=== PATIENT | female | born 1960 | race Caucasian/White ===

== ENCOUNTER 2020-04-19 17:50 | Inpatient (IN) | payer OTHER ==
[~2020-04-19] VITALS: Ht 149.9 cm; Wt 51.0 kg
--- NOTE | ~2020-04-19 | HEMODYNAMI ---
PATIENT:GUZMAN MARTINEZ MEDICAL RECORD: [id number] : 60 [facility] D.[id number] ADMISSION DATE: 04/19/20 Generatedon:04/21/202015:23 Patient name: GUZMAN MARTINEZ Patient #: [id number] SSN: [id number] : 1960 Date of study: 04/21/2020 Page: Of Hemodynamic Procedure Report Patient Data Patient Demographics Procedure consent was obtained First Name: GUZMAN Gender: Female Last Name: JUAN : 1960 Middle Initial: A Age: 60 year(s) Patient #: [id number] Race: SSN: [id number] Additional ID: [id number] Contact details Address: [address] [place] [address] State: [place] City: [facility] Zip code: [address] Past Medical History Allergies Allergen Reaction Date Comments Reported Other allergy 04/21/2020 n Admission Admission Data Admission Date: 04/19/2020 Admission Time: 20:03 Arrival Date: 04/19/2020 Arrival Time: 0:00 Admit Source: Other Insurance Payor: None Room #: D.2121 [facility] #: [id number] Height (in.): 59 BSA: 1.44 (m2) Height (cm.): 149.86 BMI: 22.72 (kg/m2) Weight (lbs.): 112.48 Weight (kg.): 51.02 Lab Results Lab Result Date: 04/21/2020 Lab Result Time: 0:00 Biochemistry Name Units Result Min Max BUN mg/dl 17 --(---*)-- 7 18 Creatinine mg/dl 0.7 --(*---)-- 0.6 1.3 eGFR ml/min 90 --(*---)-- 90 120 NONAFRICAN Troponin l ng/ml 92.399 --(----)-* 0 0.06 CBC Name Units Result Min Max Hematocrit % 28.8 *-(----)-- 42 54 Hemoglobin g/dl 8.9 *-(----)-- 13.5 17.5 Procedure Procedure Types Cath Procedure Diagnostic Procedure Sedation Charges Moderate Sedation up to 30 minutes PCI Procedure Coronary Stent Coronary Stent Initial Hemochron ACT Test Procedure Description Procedure Date Procedure Date: 04/21/2020 Procedure Start Time: 14:45 Procedure End Time: 15:22 Procedure Staff Name Function Eddie Valadez MD Performing Physician Alpa Roman RT Monitor Kathryn Sanchez RT Scrub Gregory Bearden RN Nurse Procedure Data Cath Procedure Fluoroscopy Diagnostic fluoroscopy Total fluoroscopy Time: 3.1 time: 3.1 min min Diagnostic fluoroscopy Total fluoroscopy dose: 167 dose: 167 mGy mGy Contrast Material Contrast Material Type Amount (ml) Isovue 370 61 Entry Location Entry Primary Successful Side Size Upsize Upsize Entry Closure Succes sful Closure Location (Fr) 1 (Fr) 2 (Fr) Remarks Device Remarks Femoral Right 6 Fr Exoseal artery Short Estimated blood loss: 10 ml Procedure Complications No complications Procedure Medications Medication Administration Route Dosage Oxygen etCO2 Nasal cannula 2 l/min Lidocaine 2% added to field 20 Heparin Flush Bag added to field 2 bags (1000units/500ml NS) 0.9% NaCl I.V. 100 ml/hr Versed I.V. 1 mg Fentanyl I.V. 50 mcg Versed I.V. 1 mg Fentanyl I.V. 50 mcg Versed I.V. 1 mg Fentanyl I.V. 50 mcg Heparin Bolus I.V. 5000 units Nitroglycerin IC/IA I.C. 100 mcg Nitroglycerin IC/IA I.C. 100 mcg Hemodynamics Rest BSA: 1.44 (m2) HGB: 8.9 (g/dl) O2 Consumption: Estimated: 140.25 (ml/min) O2 Con sumption indexed: Estimated:97.4 (ml/min/m) Heart Rate: 77 (bpm) Snapshots Pre Cath Intra NCS Post Cath Vital Signs Time Heart Resp SPO2 etCO2 NIBP (mmHg) Rhythm Pain Sedation Rate (ipm) (%) (mmHg) Status Level (bpm) 14:22:26 80 23 93 0 157/97(122) NSR 0 (11) 10(A) , No pain 14:26:38 88 21 99 26.9 168/112(147) NSR 0 (11) 10(A) , No pain 14:30:54 79 23 100 28.4 153/101(132) NSR 0 (11) 10(A) , No pain 14:35:04 79 24 100 23.9 154/99(130) NSR 0 (11) 10(A) , No pain 14:39:14 78 18 100 33.6 146/93(125) NSR 0 (11) 10(A) , No pain 14:43:19 82 14 100 32.8 151/100(126) NSR 0 (11) 10(A) , No pain 14:47:27 78 14 100 28.3 146/93(128) NSR 0 (11) 10(A) , No pain 14:51:33 86 16 100 37.3 142/94(124) NSR 0 (11) 9(A) , No pain 14:55:39 83 13 100 38.8 147/95(124) NSR 0 (11) 9(A) , No pain 14:59:51 81 14 100 32.1 135/80(116) NSR 0 (11) 9(A) , No pain 15:03:55 81 11 100 41.1 145/93(127) NSR 0 (11) 9(A) , No pain 15:08:05 81 10 100 39.6 127/86(108) NSR 0 (11) 9(A) , No pain 15:12:06 82 12 100 38.8 135/90(108) NSR 0 (11) 9(A) , No pain 15:17:07 76 12 100 36.5 163/108(138) NSR 0 (11) 10(A) , No pain Medications Time Medication Route Dose Verified Delivered Reason Notes Effectiveness by by 14:29:59 Oxygen etCO2 2 Eddie Buffie used for Nasal l/min Rory Bearden RN procedure cannula 14:30:06 Lidocaine 2% added 20ml Eddie Eddie for local to vial Rory Valadez MD anesthetic field 14:30:12 Heparin Flush added 2 Eddie Eddie used for Bag to bags Rory Valadez MD procedure (1000units/500ml field NS) 14:30:23 0.9% NaCl I.V. 100 Eddie Buffie Per physician ml/hr Rory Bearden RN 14:42:01 Versed I.V. 1 mg Eddie Buffie for sedation Rory Bearden RN 14:42:08 Fentanyl I.V. 50 Eddie Buffie for sedation mcg Rory Bearden RN 14:50:12 Versed I.V. 1 mg Eddie Buffie for sedation Rory Bearden RN 14:50:48 Fentanyl I.V. 50 Eddie Buffie for sedation mcg Rory Bearden RN 14:58:12 Versed I.V. 1 mg Eddie Buffie for sedation Rory Bearden RN 14:58:16 Fentanyl I.V. 50 Eddie Buffie for sedation mcg Rory Bearden RN 15:03:16 Heparin Bolus I.V. 5000 Eddie Buffie for verif ied units Rory Bearden RN anticoagulation with dr valadez 15:04:45 Nitroglycerin I.C. 100 Eddie Eddie for IC/IA mcg Rory Valadez MD vasodilation 15:10:37 Nitroglycerin I.C. 100 Eddie Eddie for IC/IA mcg Rory Valadez MD vasodilation Procedure Log Time Note 14:01:18 Informed consent obtained and on chart 14:01:28 Diagnostic Cath Status : Urgent 14:02:15 Patient Height : 59 inches 14:02:19 Patient Weight : 112.48 lbs 14:03:55 Lab Result : Creatinine 0.7 mg/dl 14:03:55 Lab Result : BUN 17 mg/dl 14:03:55 Lab Result : Hemoglobin 8.9 g/dl 14:03:55 Lab Result : eGFR NONAFRICAN 90 ml/min 14:03:55 Lab Result : Troponin l 92.399 ng/ml 14:03:55 Lab Result : Hematocrit 28.8 % 14:05:26 ACC Patient presents with Unstable Angina CCS Anginal Class 2--Slight limitation of ordinary activity. 14:05:30 Procedure Status Urgent Heart Cath (IP). 14:05:33 Time tracking: Regular hours (M-F 7:00 - 5:00) 14:05:39 Plan of Care:Hemodynamics will remain stable., Cardiac rhythm will remain stable., Comfort level will be maintained., Respiratory function will remain adequate., Patient/ family verbilizes understanding of procedure., Procedure tolerated without complication., Recovers from procedure without complications.. 14:05:45 Kathryn Sanchez RT(R) sent for patient. Start room use. 14:05:53 H&P Date Dictated: 04/19/2020 Within 30 days and on chart.. 14:05:55 Pre-procedure instructions explained to patient. 14:05:55 Pre-op teaching completed and patient verbalized understanding. 14:05:57 Family unavailable. 14:05:59 Patient NPO since Midnight. 14:06:10 Patient allergic to Other allergypcn 14:06:19 Lab results completed and on chart. 14:06:23 Stress Test: no; N/A ? 14:06:25 Alarms reviewed by R. N. 14:06:25 Sharps counted by scrub and verified by R.N. 14:06:33 Admit Source: Other 14:11:25 Patient received from ICU to CCL 1 Alert and oriented. Tansferred to table in Supine position. 14:11:26 Warm blankets applied, and isidro hugger turned on for patient comfort. 14:11:26 Correct patient and procedure confirmed by team. 14:11:27 ECG and BP/O2 sat monitors applied to patient. 14:11:31 Is the patient allergic to Iodine/contrast media? No. 14:11:34 Was the patient premedicated? N/A 14:11:36 Is patient on blood thinner?Yes 14:11:39 ACC The patient was administered the following blood thiners within the last 24 hours: ACCPlavix 14:11:41 Patient diabetic? No. 14:11:43 If diabetic: On Metformin? N/A 14:11:45 Patient not . Patient is over age 55. 14:11:46 ----Pre-sedation anethsthesia assessment.---- 14:11:49 Previous problem with sedation/anesthesia? No ? 14:11:50 Snore? Yes 14:11:51 Sleep apnea? No 14:11:53 Deviated septum? No 14:11:53 Opens mouth fully? Yes 14:11:55 Sticks out tongue? Yes 14:11:57 Airway obstruction? Yes COPD 14:11:59 Dentures? No ? 14:20:56 Pre procedure: right dorsailis pedis pulse 2+ Normal; easily identifiable; not easily obliterated 14:20:58 Modified Christiano's test Ulnar < 7 seconds 14:21:00 Patient pain scale 0/10 ?. 14:21:07 IV patent on arrival in left antecubital with 0.9% NaCl at [facility]. 14:21:13 Right Radial & Right Groin area was prepped with chlora-prep and draped in sterile fashion 14:21:19 Vital chart was started 14:21:21 Full Disclosure recording started 14:22:02 IV Extension Set opened to sterile field. 14:22:35 Rhythm: sinus rhythm 14:22:38 Baseline sample Acquired. 14:22:43 Use device set Radial Dx or PCI 14:22:44 ACIST Syringe (82692) opened to sterile field. 14:22:45 Medline Cath Pack ([id number]) opened to sterile field. 14:22:45 Bag Decanter (2002S) opened to sterile field. 14:22:46 ACIST Hand Control (85132) opened to sterile field. 14:22:47 ACIST Manifold (87924) opened to sterile field. 14:22:48 MBrace Wrist Support ([id number]) opened to sterile field. 14:22:49 NEEDLE Cook 21G 4cm Radial (V28365) opened to sterile field. 14:22:52 SHEATH 6FR RAIN (0496767) opened to sterile field. 14:22:53 EMERALD Guide Wire (689-430) opened to sterile field. 14:22:55 Use device set VALADEZ PCI 14:22:57 INFLATOR Merit BasixCompak (JH4993) opened to sterile field. 14:23:00 TUBING High Pressure Extension Tubing (Rory) ([id number]) opened to sterile field. 14:23:02 BMW 300cm Blessing 2 J wire ([id number]) opened to sterile field. 14:29:59 Oxygen 2 l/min etCO2 Nasal cannula was administered by Gregory Bearden RN; used for procedure; Verbal order read back and verified. 14:30:06 Lidocaine 2% 20ml vial added to field was administered by Eddie Valadez MD; for local anesthetic; Verbal order read back and verified. 14:30:12 Heparin Flush Bag (1000units/500ml NS) 2 bags added to field was administered by Eddie Valadez MD; used for procedure; Verbal order read back and verified. 14:30:23 0.9% NaCl 100 ml/hr I.V. was administered by Gregory Bearden RN; Per physician; Verbal order read back and verified. 14:41:30 --------ALL STOP TIME OUT------ 14:41:31 Final Timeout: patient, procedure, and site verified with staff and physician. All members of the team are in agreement. 14:41:37 Right Radial & Right Groin site verified by team. 14:41:41 Fire Safety Assessment: A--An alcohol-based skin anteseptic being used preoperatively., C--Open oxygen or nitrous oxide is being used., D--An ESU, laser, or fiber-optic light is being used. 14:41:44 Physical assessment completed. ASA score P 2 - A patient with mild systemic disease as per Eddie Valadez MD. 14:41:46 1) 90+ Normal kidney functon but urine findings or structural abnormalities or genetic trait point to kidney disease. 14:41:49 Maximum allowable contrast dose (3.7 X eGFR X 0.75)250. ml. 14:41:52 Sedation plan: IV Moderate Sedation Medication:Versed, Fentanyl 14:42:01 Versed 1 mg I.V. was administered by Gregory Bearden RN; for sedation; Verbal order read back and verified. 14:42:08 Fentanyl 50 mcg I.V. was administered by Gregory Bearden RN; for sedation; Verbal order read back and verified. 14:45:35 Procedure started. 14:45:41 Local anesthetic to right radial artery with Lidocaine 2% by Eddie Valadez MD.INITIAL ACCESS ONLY 14:48:24 SHEATH 6FR Erin (ATS159) opened to sterile field. 14:48:47 UNABLE TO USE RAIDIAL GOING GROIN. 14:48:52 Local anesthetic to right femoral artery with Lidocaine 2% by Eddie Valadez MD.ADDITIONAL ACCESS 14:50:12 Versed 1 mg I.V. was administered by Gregory Bearden RN; for sedation; Verbal order read back and verified. 14:50:48 Fentanyl 50 mcg I.V. was administered by Gregory Bearden RN; for sedation; Verbal order read back and verified. 14:56:10 MICROPUNCTURE 4FR Cook (E51236) opened to sterile field. 14:58:12 Versed 1 mg I.V. was administered by Buffie Bearden RN; for sedation; Verbal order read back and verified. 14:58:16 Fentanyl 50 mcg I.V. was administered by Gregory Bearden RN; for sedation; Verbal order read back and verified. 15:00:28 Access obtained with 4Fr micropunture. 15:00:41 A 6 Fr Short sheath was inserted into the Right Femoral artery 15:01:29 Proceeding to intervention. 15:01:30 GUIDE 6FR XBLAD 3.5 catheter ([id number]) opened to sterile field. 15:01:36 6 Fr XBLAD 3.5 guide catheter was inserted over the wire 15:03:16 Heparin Bolus 5000 units I.V. was administered by Gregory Bearden RN; for anticoagulation; verified with dr valadez Verbal order read back and verified. 15:04:45 Nitroglycerin IC/IA 100 mcg I.C. was administered by Eddie Valadez MD; for vasodilation; Verbal order read back and verified. 15:06:42 Pre PCI Site: Marshall LAD has 85% stenosis. 15:07:09 ACC Pre-intervention CHETNA Flow is 2. 15:07:57 BMW 300 wire advanced. 15:07:58 Wire advanced across lesion. 15:09:57 Place stent Inflation Number: 1 A JOE RX 2.75 x 18 stent ([id number]) was prepped and advanced across the Prox LAD 85. The stent was deployed at 12 GLORIA for 0:00 (min:sec) . 15:10:37 Nitroglycerin IC/IA 100 mcg I.C. was administered by Eddie Valadez MD; for vasodilation; Verbal order read back and verified. 15:12:53 Stent catheter was removed intact over wire. 15:12:53 Wire removed. 15:12:54 Guide catheter removed. 15:12:57 EXOSEAL 6Fr (EX600) opened to sterile field. 15:13:11 Sheath removed intact; hemostasis achieved with Exoseal to the Right Femoral artery. 15:13:20 Fluoroscopy time 03.10 minutes. 15:13:25 Fluoroscopy dose: 167 mGy 15:13:25 Flurop Dose total: 167 15:13:33 Dose Area Product 6480 mGy/cm. 15:14:29 Contrast amount:Isovue 370 61ml. 15:14:31 Maximum allowable dose exceeded? No. 15:14:41 Procedure ended.(Physican Out) 15:14:42 Sharps counted by scrub and verified by R.N. 15:15:22 Post-op/insertion site Right Femoral artery dressed using a 4 x 4 and Tegaderm. 15:15:27 Post right femoral artery:stable, soft, clean and dry 15:15:29 Post Procedure Pulses reassessed and unchanged 15:15:34 Post procedure: right dorsailis pedis pulse 2+ Normal; easily identifiable; not easily obliterated. 15:15:39 Post-procedure physical assessment completed. ASA score P 2 - A patient with mild systemic disease as per Eddie Valadez MD. 15:16:11 Post procedure rhythm: unchanged. 15:16:16 Estimated blood loss: 10 ml 15:16:17 Post procedure instruction explained to patient.Patient verbalizes understanding. 15:16:18 Patient needs reinforcement of post procedure teaching. 15:16:43 Procedure type changed to Cath procedure, Diagnostic procedure, Sedation Charges, Moderate Sedation up to 30 minutes, PCI procedure, Coronary Stent, Coronary Stent Initial, Hemochron ACT Test 15:20:10 ACT drawn and resulted at 291 seconds. (normal therapeutic range 180-240 seconds). 15:20:16 Procedure and supply charges have been captured, reviewed, submitted and are correct. 15:20:20 Procedure Complication : No complications 15:20:22 Vital chart was stopped 15:20:26 [facility] Findings: MVD- PCI performed (see procedure note) 15:20:27 Operative report dictated upon procedure completion. 15:20:28 See physician's report for complete and final results. 15:21:43 Report given to [facility]. 15:22:08 Patient transfered to [facility] with Bed. 15:22:17 Procedure ended. 15:22:17 Full Disclosure recording stopped 15:22:23 ACC-PCI Only Patient was given prescriptions, or instructed by Eddie Valadez MD to start/continue the following medications upon discharge: Plavix 15:22:25 End room use (Document Last) 15:22:43 End room use (Document Last) 15::58 End room use (Document Last) Intervention Summary Intervention Notes Time ActionType Lesion and Equipment Used Action# Pressure Duration Attributes 15:09:57 Place stent Prox LAD JOE RX 2.75 x 1 12 00:00 18 stent ([id number]) Device Usage Item Name Manufacture Quantity Catalog Hospital Part Current [facility] Lot# / Number Charge Number Stock Stock Serial# Code IV Extension Hospira 1 01523-46 193614 82013 182802 5 Set ACIST Syringe Acist 1 79181 527092 006698 446053 20 (41496) Medical Systems Inc Medline Cath Medline 1 [id number] 751473 89985 320334 5 Pack ([id number]) Bag Decanter Microtek 1 2001S 778905 53310 964319 5 (2001S) Medical Inc. ACIST Hand Acist 1 41003 348165 605436 259995 5 Control Medical (40366) Systems Inc ACIST Manifold Acist 1 03583 017818 126564 697366 5 (38105) Medical Systems Inc MBrace Wrist Advanced 1 140-0250-00 107390 78503 638602 5 Support Vascular ([id number]) Dynamics NEEDLE Cook Cook Medical 1 C95023 022410 315503 778692 5 21G 4cm Radial (I45826) SHEATH 6FR Cardinal 1 0955706 182317 1259687 138756 5 RAIN (9319432) Health EMERALD Guide Cardinal 1 502-455 923503 886692 857121 5 Wire (502-455) Health INFLATOR Merit Merit 1 BO1173 011997 520332 613978 15 BasixCompak Medical (YK2404) TUBING High Merit 1 [id number] 652887 36166 749328 10 Pressure Medical Extension Tubing (Valadez) ([id number]) BMW 300cm Booker 1 [id number] 530508 873270 591815 5 Blessing 2 J Vascular wire (1570104R) SHEATH 6FR Terumo 1 ABH045 781171 396985 987510 40 Erin (VMP250) MICROPUNCTURE Cook Medical 1 J88885 727478 927199 276303 5 4FR Cook (R40141) GUIDE 6FR Cardinal 1 57024276 516479 724002 297679 10 XBLAD 3.5 Health catheter (19102205) JOE RX 2.75 x Medtronic 1 [id number] 803344 3524567 613242 5 [id number] 18 stent ([id number]) EXOSEAL 6Fr Cardinal 1 EX600 030902 317030 873302 10 (EX600) Health Signature Audit Sandwich Stage Time Signature Unsigned Intra-Procedure 04/21/2020 Alpa Roman 3:22:43 PM RT(R) Intra-Procedure 04/21/2020 Gregory Bearden RN 3:22:58 PM Intra-Procedure 04/21/2020 Eddie Valadez MD 3:23:18 PM [place] [id number] [place] [id number]
--- NOTE | ~2020-04-19 | HEMODYNAMI ---
PATIENT:GUZMAN MARTINEZ MEDICAL RECORD: [id number] : 60 [id number] ADMISSION DATE: 04/19/20 Generatedon:04/19/202019:29 Patient name: GUZMAN MARTINEZ Patient #: [id number] SSN: [id number] : 1960 Date of study: 04/19/2020 Page: Of Hemodynamic Procedure Report Patient Data Patient Demographics Procedure consent was obtained First Name: GUZMAN Gender: Female Last Name: JUAN : 1960 Middle Initial: A Age: 60 year(s) Patient #: [id number] Race: SSN: [id number] Additional ID: [id number] Contact details Address: [address] [place] [address] State: [place] City: [facility] Zip code: [address] Past Medical History Allergies: No known allergies Admission Admission Data Admission Date: 04/19/2020 Admission Time: 17:50 Arrival Date: 04/19/2020 Arrival Time: 0:00 Admit Source: Other Insurance Payor: None Procedure Procedure Types Cath Procedure Diagnostic Procedure LHC LHC w/Coronaries Temporary Pacemaker Sedation Charges Moderate Sedation up to 30 minutes PCI Procedure Coronary Stent Coronary Stent Initial Hemochron ACT Test Procedure Description Procedure Date Procedure Date: 04/19/2020 Procedure Start Time: 18:33 Procedure End Time: 19:20 Procedure Staff Name Function Eddie Valadez MD Performing Physician Alpa Roman RT Monitor Kathryn Sanchez RT Scrub Gregory Bearden RN Nurse Indication Angina Procedure Data Cath Procedure Fluoroscopy Diagnostic fluoroscopy Total fluoroscopy Time: 4.6 time: 4.6 min min Diagnostic fluoroscopy Total fluoroscopy dose: 292 dose: 292 mGy mGy Contrast Material Contrast Material Type Amount (ml) Isovue 370 104 Entry Location Entry Primary Successful Side Size Upsize Upsize Entry Closure Coleman ccessful Closure Location (Fr) 1 (Fr) 2 (Fr) Remarks Device Remarks Femoral Right 6 Fr Exoseal artery Short Femoral Right 6 Fr Mechanical vein Short Compression Estimated blood loss: 10 ml Diagnostic catheters Device Type Used For End Catheter Placement MULTIPACK JL 4.0 5Fr Procedure catheter MULTIPACK 3DRC 5Fr Procedure catheter MULTIPACK Pigtail 5 Fr Procedure catheter Procedure Complications No complications Procedure Medications Medication Administration Route Dosage Heparin Bolus I.V. 5000 units Fentanyl I.V. 50 mcg Oxygen etCO2 Nasal cannula 4 l/min Lidocaine 2% added to field 20 Heparin Flush Bag added to field 2 bags (1000units/500ml NS) 0.9% NaCl I.V. bolus 250 ml/hr Integrilin (Bolus I.V. 5 ml 2mg/ml) Lopressor I.V. 5 mg Fentanyl I.V. 50 mcg Plavix P.O. 600 mg Hemodynamics Rest Heart Rate: 60 (bpm) Gradients Valve Time Site Site Mean SEP/DFP Peak To Heart Use 1 2 (mmHg) (sec/min) Peak Rate (mmHg) (bpm) Aortic 18:56 LV AO 29 Snapshots Pre Cath Intra NCS Post Cath Vital Signs Time Heart Resp SPO2 etCO2 NIBP (mmHg) Rhythm Pain Status Sedation Rate (ipm) (%) (mmHg) Level (bpm) 18:27:13 59 29 100 26.2 152/94(126) NSR w/ ST 10 (11) , 10(A) Elevation Unimaginable unspeakable 18:31:22 59 15 100 26.1 163/90(125) NSR w/ ST 10 (11) , 10(A) Elevation Unimaginable unspeakable 18:36:48 70 14 99 20.9 139/111(114) NSR w/ ST 10 (11) , 10(A) Elevation Unimaginable unspeakable 18:40:50 56 13 100 19.4 152/101(124) NSR w/ ST 10 (11) , 10(A) Elevation Unimaginable unspeakable 18:44:58 118 16 100 24.7 166/122(152) NSR w/ ST 10 (11) , 10(A) Elevation Unimaginable unspeakable 18:49:09 91 17 100 14.2 143/106(139) NSR w/ ST 10 (11) , 10(A) Elevation Unimaginable unspeakable 18:53:13 100 19 99 20.9 140/99(119) NSR w/ ST 7 (11) , 10(A) Elevation Very intense 18:57:15 87 13 100 21.7 150/106(125) NSR w/ ST 7 (11) , 10(A) Elevation Very intense 19:01:21 88 22 100 21.7 150/104(129) NSR w/ ST 7 (11) , 10(A) Elevation Very intense 19:05:26 86 20 100 23.2 144/107(121) NSR w/ ST 6 (11) , 10(A) Elevation Intense 19:09:28 84 13 100 26.2 159/101(133) NSR w/ ST 0 (11) , No 10(A) Elevation pain 19:13:38 86 10 100 32.9 158/113(141) NSR w/ ST 0 (11) , No 10(A) Elevation pain 19:17:46 84 16 100 26.2 158/98(136) NSR w/ ST 0 (11) , No 10(A) Elevation pain 19:21:54 87 29 100 26.9 176/115(145) NSR w/ ST 0 (11) , No 10(A) Elevation pain 19:25:12 83 12 100 34.4 166/98(125) NSR w/ ST 0 (11) , No 10(A) Elevation pain 19:29:24 83 12 100 32.9 172/114(147) NSR w/ ST 0 (11) , No 10(A) Elevation pain Medications Time Medication Route Dose Verified Delivered Reason Notes Effectiveness by by 18:27:02 Oxygen etCO2 4 Eddie Buffie Per physician Nasal l/min Rory Bearden RN cannula 18:34:01 Heparin Bolus I.V. 5000 Eddie Buffie for verif ied units Rory Bearden RN anticoagulation with dr valadez 18:35:09 Lidocaine 2% added 20ml Eddie Buffie used for to vial Rory Bearden RN procedure field 18:35:16 Heparin Flush added 2 Eddie Eddie used for Bag to bags Rory Valadez MD procedure (1000units/500ml field NS) 18:35:26 0.9% NaCl I.V. 250 Eddie Buffie Per physician bolus ml/hr Rory Bearden RN 18:36:50 Fentanyl I.V. 50 Eddie Buffie for sedation mcg Rory Bearden RN 18:44:29 Integrilin I.V. 5 ml Eddie Buffie for waste d 5 (Bolus 2mg/ml) Rory Bearden RN antiplatelet ml of therapy vial 18:51:08 Lopressor I.V. 5 mg Eddie Geriie Per physician Rory Bearden RN 18:55:27 Fentanyl I.V. 50 Eddie Buffie for sedation mcg Rory Bearden RN 19:08:17 Plavix P.O. 600 Eddiejorge Jenkins for mg Rory Bearden RN antiplatelet therapy Procedure Log Time Note 18:11:48 Diagnostic Cath Status : Emergency 18:12:09 Indication : Angina 18:12:58 Procedure Status Emergent Heart Cath (AMI). 18:13:01 Gregory Bearden RN sent for patient. Start room use. 18:13:02 Time tracking: Regular hours (M-F 7:00 - 5:00) 18:13:07 Plan of Care:Hemodynamics will remain stable., Cardiac rhythm will remain stable., Comfort level will be maintained., Respiratory function will remain adequate., Patient/ family verbilizes understanding of procedure., Procedure tolerated without complication., Recovers from procedure without complications.. 18:15:01 Arrival Date: 04/19/2020 12:00:00 AM 18:15:02 Admit Source: Other 18:15:51 Insurance Payor : None 18:19:09 Informed consent obtained and on chart 18:19:32 H&P Date Dictated: 04/19/2020 Within 30 days and on chart.. 18:19:34 Pre-procedure instructions explained to patient. 18:19:34 Pre-op teaching completed and patient verbalized understanding. 18:19:39 Family in waiting room. 18:19:42 Patient NPO since Lunch. 18:20:12 Patient allergic to No known allergies 18:20:23 Alarms reviewed by R. N. 18:20:23 Sharps counted by scrub and verified by R.N. 18:20:27 Right groin area was prepped with chlora-prep and draped in sterile fashion 18:20:32 Stress Test: no; N/A ? 18:21:08 Patient received from ED to CCL 1 Alert and oriented. Tansferred to table in Supine position. 18:21:09 Warm blankets applied, and isidro hugger turned on for patient comfort. 18:21:09 Correct patient and procedure confirmed by team. 18:21:10 ECG and BP/O2 sat monitors applied to patient. 18:26:07 Vital chart was started 18:27:02 Oxygen 4 l/min etCO2 Nasal cannula was administered by Gregory Bearden RN; Per physician; Verbal order read back and verified. 18:27:08 Baseline sample Acquired. 18:27:09 Full Disclosure recording started 18:27:36 Rhythm: 1st degree heart block 18:27:41 Is the patient allergic to Iodine/contrast media? No. 18:27:43 Was the patient premedicated? N/A 18:27:45 Is patient on blood thinner?No 18:27:47 If diabetic: On Metformin? No 18:27:51 Patient diabetic? No. 18:27:52 ----Pre-sedation anethsthesia assessment.---- 18:27:55 Previous problem with sedation/anesthesia? No ? 18:27:57 Snore? Yes 18:27:58 Sleep apnea? No 18:27:59 Deviated septum? No 18:28:00 Lab results pending. 18:28:00 Opens mouth fully? Yes 18:28:01 Sticks out tongue? Yes 18:28:03 Airway obstruction? No ? 18:28:05 Dentures? No ? 18:28:09 Patient pain scale 10/10 chest. 18:28:20 IV patent on arrival in left antecubital with 0.9% NaCl at [facility]. 18:28:25 --------ALL STOP TIME OUT------ 18:28:26 Final Timeout: patient, procedure, and site verified with staff and physician. All members of the team are in agreement. 18:28:27 Right groin site verified by team. 18:28:32 Fire Safety Assessment: A--An alcohol-based skin anteseptic being used preoperatively., C--Open oxygen or nitrous oxide is being used., D--An ESU, laser, or fiber-optic light is being used. 18:28:34 Physical assessment completed. ASA score P 2 - A patient with mild systemic disease as per Eddie Valadez MD. 18:28:39 Sedation plan: IV Moderate Sedation Medication:Versed, Fentanyl 18:32:06 Use device set Femoral Dx 18:32:09 Use device set RORY PCI 18:32:12 Medline Cath Pack ([id number]) opened to sterile field. 18:32:13 ACIST Hand Control (30633) opened to sterile field. 18:32:16 ACIST Syringe (64581) opened to sterile field. 18:32:17 Bag Decanter (2002S) opened to sterile field. 18:32:18 ACIST Manifold (61259) opened to sterile field. 18:32:19 DIAGNOSTIC Multipack 5Fr catheter set (QS3250) opened to sterile field. 18:32:22 SHEATH 6FR Ingram (PLG393) opened to sterile field. 18:32:23 TUBING High Pressure Extension Tubing (Rory) (HY0985K) opened to sterile field. 18:32:25 5Fr J Tip Temporary Pacing Catheter ([id number]) opened to sterile field. 18:32:25 EMERALD Guide Wire (502-455) opened to sterile field. 18:32:26 BMW 300cm [place] 2 J wire ([id number]) opened to sterile field. 18:32:30 INFLATOR Merit BasixCompak (GP6807) opened to sterile field. 18:33:00 NEEDLE FastModel Sports 18G 7cm Percutaneous Entry needle (O35549) opened to sterile field. 18:33:08 Procedure started. 18:33:11 Local anesthetic to right femoral artery with Lidocaine 2% by Eddie Valadez MD.INITIAL ACCESS ONLY 18:33:47 A 6 Fr Short sheath was inserted into the Right Femoral artery 18:34:01 Heparin Bolus 5000 units I.V. was administered by Gregory Bearden RN; for anticoagulation; verified with dr valadez Verbal order read back and verified. 18:34:50 A 6 Fr Short sheath was inserted into the Right Femoral vein 18:35:00 SHEATH 6FR Ingram (BZM631) opened to sterile field. 18:35:09 Lidocaine 2% 20ml vial added to field was administered by Gregory Bearden RN; used for procedure; Verbal order read back and verified. 18:35:12 TEMP PACER SHEATH INSERTED INTO RT FEMORAL VEIN FOR TEMP PACING\. 18:35:16 Heparin Flush Bag (1000units/500ml NS) 2 bags added to field was administered by Eddie Valadez MD; used for procedure; Verbal order read back and verified. 18:35:26 0.9% NaCl 250 ml/hr I.V. bolus was administered by Gregory Bearden RN; Per physician; Verbal order read back and verified. 18:36:50 Fentanyl 50 mcg I.V. was administered by Gregory Bearden RN; for sedation; Verbal order read back and verified. 18:37:00 QUICK CROSS Extreme .018-15 150 cm catheter ([id number]) opened to sterile field. 18:37:28 --------Temp Pacer------- 18:37:30 Temporary pacer inserted 18:38:07 Temporary pacer turned on with the following settings: Rate 50, MA 3, Mode: Demand. 18:38:22 A MULTIPACK JL 4.0 5Fr catheter was advanced over the wire and used for Procedure. 18:38:30 LCA angiography performed. 18:38:34 Injector settings: Ml/sec: 3, Volume: 6, 18:39:32 Catheter exchanged over wire. 18:39:40 A MULTIPACK 3DRC 5Fr catheter was advanced over the wire and used for Procedure. 18:40:42 RCA angiography performed. 18:40:44 Injector settings: Ml/sec: 3, Volume: 6, 18:40:46 Catheter exchanged over wire. 18:41:19 Proceeding to intervention. 18:41:30 GUIDE 6FR JR 4.0 catheter ([id number]) opened to sterile field. 18:41:39 6 Fr JR 4.0 guide catheter was inserted over the wire 18:42:24 Temporary pacer turned on with the following settings: Rate 80, MA 3, Mode: Demand. 18:42:59 BMW 300 wire advanced. 18:43:09 Pre PCI Site: [facility] RCA has 100% stenosis. 18:43:13 ACC Pre-intervention CHETNA Flow is 3. 18:43:43 Wire advanced across lesion. 18:44:29 Integrilin (Bolus 2mg/ml) 5 ml I.V. was administered by Gregory Bearden RN; for antiplatelet therapy; wasted 5 ml of vial Verbal order read back and verified. 18:45:20 Inflate balloon Inflation number: 1 A EUPHORA 2.5 x 20 Balloon ([id number]) was prepped and advanced across the Prox RCA 100, then inflated to 12 GLORIA for 0:00 (min:sec) . 18:46:34 Balloon removed over the wire. 18:49:06 Place stent Inflation Number: 2 A JOE RX 3.5 x 38 stent ([id number]) was prepped and advanced across the Prox RCA . The stent was deployed at 12 GLORIA for 0:00 (min:sec) . 18:49:43 Stent catheter was removed intact over wire. 18:49:46 ACC Post-intervention CHETNA Flow is 1. 18:50:46 Injector settings: Ml/sec: 4, Volume: 8, 18:51:08 Lopressor 5 mg I.V. was administered by Gregory Bearden RN; Per physician; Verbal order read back and verified. 18:52:22 Temporary pacer turned on with the following settings: Rate 50, MA 3, Mode: Demand. 18:53:29 Wire removed. 18:53:30 Guide catheter removed. 18:54:10 EXOSEAL 6Fr (EX600) opened to sterile field. 18:55:18 A MULTIPACK Pigtail 5 Fr catheter was advanced over the wire and used for Procedure. 18:55:27 Fentanyl 50 mcg I.V. was administered by Gregory Bearden RN; for sedation; Verbal order read back and verified. 18:55:34 LV gram done using ARAUJO 18:55:35 LV hemodynamics recorded. 18:55:42 Injector settings: Ml/sec: 5, Volume: 15, 18:56:04 EF : 45 % 18:56:51 Catheter removed. 18:57:00 Temporary pacer turn off 18:57:03 Temporary pacer removed 18:57:07 Sheath removed intact; hemostasis achieved with Exoseal to the Right Femoral artery. 18:57:37 Sheath removed intact; hemostasis achieved with Mechanical Compression to the Right Femoral vein. 18:57:38 Fluoroscopy time 04.60 minutes. 18:57:42 Flurop Dose total: 292 18:57:42 Fluoroscopy dose: 292 mGy 18:57:47 Dose Area Product 24902 mGy/cm. 18:59:10 Procedure ended.(Physican Out) 18:59:36 Contrast amount:Isovue 370 104ml. 19:00:26 Sharps counted by scrub and verified by R.N. 19:00:33 Post-op/insertion site Right Femoral artery dressed using a 4 x 4 and Tegaderm. 19:00:44 Post-op/insertion site Right Femoral vein dressed using a 4 x 4 and Tegaderm. 19:00:45 ACT drawn and resulted at out of range high seconds. (normal therapeutic range 180-240 seconds). 19:00:49 Post right femoral artery:stable, soft, clean and dry 19:01:15 Post Procedure Pulses reassessed and unchanged 19:01:19 Post procedure: right dorsailis pedis pulse 2+ Normal; easily identifiable; not easily obliterated. 19:04:14 Post-procedure physical assessment completed. ASA score P 2 - A patient with mild systemic disease as per Eddie Valadez MD. 19:04:25 Post procedure rhythm: sinus rhythm , w/ ST elevation 19:04:28 Estimated blood loss: 10 ml 19:04:31 Post procedure instruction explained to patient.Patient verbalizes understanding. 19:04:31 Patient needs reinforcement of post procedure teaching. 19:05:00 Procedure type changed to Cath procedure, Diagnostic procedure, LHC, C w/Coronaries, Temporary Pacemaker, Sedation Charges, Moderate Sedation up to 30 minutes, PCI procedure, Coronary Stent, Coronary Stent Initial, Hemochron ACT Test 19:08:17 Plavix 600 mg P.O. was administered by Gregory Bearden RN; for antiplatelet therapy; Verbal order read back and verified. 19:15:40 Procedure and supply charges have been captured, reviewed, submitted and are correct. 19:15:48 Procedure Complication : No complications 19:15:53 [facility] Findings: MVD- PCI performed (see procedure note) 19:15:56 Operative report dictated upon procedure completion. 19:15:56 See physician's report for complete and final results. 19:16:08 Report given to ICU. 19:16:13 Patient transfered to ICU with Bed. 19:20:44 ACC-PCI Only Patient was given prescriptions, or instructed by Eddie Valadez MD to start/continue the following medications upon discharge: Plavix 19:20:53 Procedure ended. 19:20:53 Full Disclosure recording stopped 19:20:57 End room use (Document Last) 19:28:51 Vital chart was stopped Intervention Summary Intervention Notes Time ActionType Lesion and Equipment Used Action# Pressure Duration Attributes 18:45:20 Inflate Prox RCA EUPHORA 2.5 x 1 12 00:00 balloon 20 Balloon ([id number]) 18:49:06 Place stent Prox RCA JOE RX 3.5 x 2 12 00:00 38 stent ([id number]) Device Usage Item Name Manufacture Quantity Catalog Hospital Part Current M inimal Lot# / Number Charge Number Stock Stock Serial# Code Medline Cath Medline 1 [id number] 025241 06482 330294 5 Pack ([id number]) ACIST Hand Acist Medical 1 73371 088090 216044 337131 5 Control Systems Inc (82979) ACIST Syringe Acist Medical 1 68572 179749 516121 464369 2 0 (27749) Systems Inc Bag Decanter Microtek 1 2001S 287902 90994 211800 5 (2001S) Medical Inc. ACIST Manifold Acist Medical 1 20930 605758 804301 070976 5 (24524) Systems Inc DIAGNOSTIC Cardinal 1 AS4160 266612 53452 498335 3 0 Multipack 5Fr Health catheter set (OS9979) SHEATH 6FR Terumo 2 JJG332 801929 671379 584675 4 0 Ingram (ZJU642) TUBING [facility] 1 [id number] 078048 69377 318818 1 0 Pressure Extension Tubing (Valadez) (OQ1925R) BMW 300cm Booker 1 [id number] 778441 743287 196578 5 [place] 2 J Vascular wire ([id number]) INFLATOR [facility] 1 MG4236 778171 162411 165652 1 5 BasixCompak (IF9721) NEEDLE [facility] 1 I41184 534371 46894 580968 5 18G 7cm Percutaneous Entry needle (L94958) MULTIPACK JL Cardinal 1 797205 5 4.0 5Fr Health catheter MULTIPACK 3DRC Cardinal 1 424181 5 5Fr catheter Health EUPHORA 2.5 x Medtronic 1 [id number] 200520 073119 874414 5 [id number] 20 Balloon ([id number]) GUIDE 6FR JR Medtronic 1 NJ0LP03 817490 91332 808749 1 4.0 catheter (XL4YD05) JOE RX 3.5 x Medtronic 1 [id number] 106784 9466320 132656 5 [id number] 38 stent ([id number]) EXOSEAL 6Fr Cardinal 1 EX600 556749 092939 060796 1 0 (EX600) Health MULTIPACK Cardinal 1 508006 5 Pigtail 5 Fr Health catheter QUICK CROSS Spectranetics 1 518-180 505225 023413 5 Extreme .018-15 150 cm catheter (030395) EMERALD Guide Cardinal 1 439-538 836072 211736 624207 5 Wire (887-860) Health 5Fr J Tip Barron 1 [id number] 315185 22173 951193 2 Temporary Lifesciences Pacing Catheter ([id number]) Signature Audit [place] Stage Time Signature Unsigned Intra-Procedure 04/19/2020 Alpa Roman 7:29:06 PM RT(R) Intra-Procedure 04/19/2020 Gregory Bearden RN 7:29:27 PM Intra-Procedure 04/19/2020 Eddie Valadez MD 7:29:46 PM [facility] [address] [place] [address]
--- NOTE | 2020-04-19 18:09 | NUR ---
SINUS RYHYTHM WITH COMPLETE HEART BLOCK AND JUNCTIONAL RHYTHM WITH OCC PVC. ACUTE [place], STEMI
--- NOTE | 2020-04-19 18:18 | NUR ---
PT TO DEPUTY SHERIFF
[2020-04-19 19:15] LABS: HEMATOCRIT 30.5 % (36.0-48.0); HEMOGLOBIN 9.7 g/dL (12-16); MCH 28.5 pg (26.0-34.0); MCHC 31.8 g/dL (31.0-37.0); MCV 89.7 fL (80.0-100.0); PLATELET COUNT 227 10x3/uL (130-400); RDW 13.7 % (11.5-14.5)
[2020-04-19 19:58] LABS: ANION GAP 13.8 mmol/L (8-16); CALCIUM 7.3 mg/dL (8.5-10.1); CHOL - HDL RATIO 2.5 ratio (2.3-4.1); CREATININE - SERUM 0.9 mg/dL (0.6-1.3); LDL-HDL RATIO 1.4 ratio (1.5-3.5)
[2020-04-19 20:00] VITALS: BP 190/121
[2020-04-19 20:00] LABS: EOSINOPHILS 1 % (0-7); LYMPHOCYTES 9 % (15-50); MONOCYTES 1 % (2-11); NEUTROPHILS 89 % (40-80); PLATELET ESTIMATE NORMAL
[2020-04-19 20:01] LABS: POTASSIUM - SERUM 2.8 mmol/L (3.5-5.1)
[2020-04-19 20:17] VITALS: BP 190/121; Ht 149.9 cm; Wt 51.0 kg
[2020-04-19 21:00] VITALS: BP 150/92
[2020-04-19 22:00] VITALS: BP 140/94
[2020-04-19 23:00] VITALS: BP 130/54
[2020-04-20] VITALS (12 sets, daily range): BP systolic 97–157; BP diastolic 34–90
[2020-04-20 11:26] LABS: BASOPHILS 0.2 % (0-2); EOSINOPHILS 0.7 % (0-7); HEMATOCRIT 28.8 % (36.0-48.0); HEMOGLOBIN 8.9 g/dL (12-16); IMMATURE GRANULOCYTES 0.2 % (0-5); LYMPHOCYTES 6.8 % (15-50); MCHC 30.9 g/dL (31.0-37.0); MCV 90.6 fL (80.0-100.0); MEAN PLATELET VOLUME 10.6 fL (7.4-10.4); MONOCYTES 7.1 % (2-11); PLATELET COUNT 207 10x3/uL (130-400); RBC 3.18 10x6/uL (4.00-5.40); RDW 13.7 % (11.5-14.5); WBC 12.3 10x3/uL (4.8-10.8)
[2020-04-20 11:46] LABS: ALBUMIN 2.6 g/dL (3.4-5.0); BILIRUBIN - TOTAL 0.19 mg/dL (0.2-1.3); CARBON DIOXIDE 22.3 mmol/L (21.0-32.0); CREATININE - SERUM 0.9 mg/dL (0.6-1.3); PROTEIN - SERUM 6.4 g/dL (6.4-8.2)
[2020-04-20 11:49] LABS: ANION GAP 10.1 mmol/L (8-16); POTASSIUM - SERUM 3.4 mmol/L (3.5-5.1)
--- NOTE | 2020-04-20 19:25 | NUR ---
ASSESSMENT PER FLOW SHEET, VS OBTAINED, SALINE LOCK IN UPPER LEFT FA INTACT WITH NO REDNESS OR EDEMA, PT'S TEMP 100.2, 3 BLANKETS REMOVED, EXPLAINED TO PT WHY THE BLANKETS WERE REMOVED DUE TO TEMP, PT VERBALIZES UNDERSTANDING, PT USES BEDSIDE COMMODE, DENIES FLATUS, REPORTS BM AND VOIDING WITH NO DIFFICULTY, PT INST TO USE CALL LIGHT FOR ANY ASSISTANCE, PT VERBALIZES UNDERSTANDING, PT DENIES PAIN OR CHEST PAIN, REPORTS SLIGHT NAUSEA, WILL ADM TYLENOL FOR TEMP, DINNER TRAY REMOVED
--- NOTE | 2020-04-20 19:41 | NUR ---
ADM EZRA PHILIP PER MD ORDERS, SEE EMAR, INFORMED PT THAT I WILL BE BACK IN ABOUT AN HOUR TO RECHECK TEMP, PT VERBALIZES UNDERSTANDING, INFORMED PT THAT ONE OF HER NEXT DOOR NEIGHBORS CALLED AND PROVIDED HER THE PHONE NUMBER, PT GIVEN PASSCODE FOR FAMILY MEMBER
--- NOTE | 2020-04-20 20:37 | NUR ---
PT AWAKE, MAKING PHONE, TEMP OBTAINED, REQUESTED AND SERVED APPLE JUICE, ANOTHER PILLOW PROVIDED, DENIES FURTHER NEEDS
--- NOTE | 2020-04-20 21:32 | NUR ---
PT RESTING WITH EYES CLOSED, AROUSES TO SOFT VERBAL STIMULATION, BP OBTAINED, ADM 2100 MED PER MD ORDERS, SEE EMAR, WITH FRESH H20, PT DENIES NEEDS OR PAIN, BED IN LOW POSITION, SIDE RAILS X 2, CALL LIGHT IN REACH
--- NOTE | 2020-04-20 22:30 | NUR ---
PT AROUSES TO OPENING OF DOOR, DENIES NEEDS OR PAIN AT THIS TIME
[2020-04-21 00:21] VITALS: BP 130/73
--- NOTE | 2020-04-21 00:21 | NUR ---
PT RESTING WITH EYES CLOSED, AROUSES TO SOFT VERBAL STIMULATION, VS OBTAINED, PT DENIES NEEDS OR PAIN, BED IN LOW POSITION, SIDE RAILS X 2, CALL LIGHT IN REACH
--- NOTE | 2020-04-21 02:25 | NUR ---
PT RESTING WITH EYES CLOSED, RESP QUIET, NO DISTRESS NOTED, LEFT UNDISTURBED AT THIS TIME
[2020-04-21 04:30] VITALS: BP 125/72
--- NOTE | 2020-04-21 04:30 | NUR ---
PT RESTING WITH EYES CLOSED, AROUSES TO SOFT VERBAL STIMULATION, VS OBTAINED, EMPTIED BEDSIDE COMMODE, HCG BATH GIVEN, GOWNS AND LINENS CHANGED, PT INST ON NPO, GLYCERIN SWABS PROVIDED, PT DENIES FURTHER NEEDS
[2020-04-21 04:50] LABS: BASOPHILS 0.4 % (0-2); EOSINOPHILS 1.8 % (0-7); HEMATOCRIT 28.8 % (36.0-48.0); HEMOGLOBIN 8.9 g/dL (12-16); IMMATURE GRANULOCYTES 0.3 % (0-5); LYMPHOCYTES 18.2 % (15-50); MCH 27.8 pg (26.0-34.0); MCHC 30.9 g/dL (31.0-37.0); MEAN PLATELET VOLUME 10.8 fL (7.4-10.4); MONOCYTES 9.4 % (2-11); NEUTROPHILS 69.9 % (40-80); PLATELET COUNT 213 10x3/uL (130-400); RDW 13.9 % (11.5-14.5); WBC 9.3 10x3/uL (4.8-10.8)
[2020-04-21 05:13] LABS: APTT 24.8 SECONDS (22.8-39.4)
[2020-04-21 05:14] LABS: INR 1.03 (0.85-1.17); PROTIME 13.4 SECONDS (11.6-15.0)
[2020-04-21 05:35] LABS: ALBUMIN 2.7 g/dL (3.4-5.0); ALKALINE PHOSPHATASE 96 U/L (30-120); ALT (SGPT) 97 U/L (10-68); BILIRUBIN - TOTAL 0.31 mg/dL (0.2-1.3); CALCIUM 8.1 mg/dL (8.5-10.1); CARBON DIOXIDE 24.9 mmol/L (21.0-32.0); CHLORIDE - SERUM 108 mmol/L (98-107); CREATININE - SERUM 0.7 mg/dL (0.6-1.3); POTASSIUM - SERUM 3.4 mmol/L (3.5-5.1); PROTEIN - SERUM 6.4 g/dL (6.4-8.2); SODIUM 140 mmol/L (136-145); eGFR NON AFRICAN AMERICAN 90 mL/min (90-120)
[2020-04-21 05:42] LABS: CALC OSMOLALITY 280 mosm/kg (275-300); GLUCOSE 96 mg/dL (74-106); TROPONIN-I 92.399 ng/mL (0.000-0.060); UREA NITROGEN 17 mg/dL (7-18)
--- NOTE | 2020-04-21 05:48 | NUR ---
ADAM ANGEL NP PAGED
--- NOTE | 2020-04-21 05:49 | NUR ---
ADAM ANGEL APPLICATIONS ARCHITECT CALLS UNIT, EDGAR CALDERON, [employer] MANAGER NURSE GAVE REPORT OF TROPONIN LEVEL
--- NOTE | 2020-04-21 05:59 | NUR ---
ADM POTASSIUM PER MD ORDERS FOR ELECTROLYTE PROTOCOL, PT NAVEEN WELL
[2020-04-21 07:00] VITALS: BP 133/85
[2020-04-21 11:00] VITALS: BP 140/88
--- NOTE | 2020-04-21 16:06 | NUR ---
TRANSFER FROM MANAGER CATH LAB BY BED. VS WNL. RIGHT GROIN STABLE WITHOUT BLEEDING OR HEMATOMA NOTED. WILL MONITOR.
--- NOTE | 2020-04-21 19:41 | MORECARE ---
CASE MANAGEMENT DISCHARGE SUMMARY PATIENT: GUZMAN MARTINEZ UNIT: [id number] ADM DATE: 04/19/20 AGE: 60 : 60 SEX: F ROOM/BED: D.3024 AUTHOR: INGRID,DOC PHYSICIAN: REFERRING PHYSICIAN: LIZ ROE MD DATE OF SERVICE: 04/21/20 Discharge Plan Patient Name: GUZMAN MARTINEZ Facility: [facility]:[place] : 1960 Planned Disposition: Home Anticipated Discharge Date: Discharge Date: Expected LOS: Initial Reviewer: [email or web address] Initial Review Date: 04/19/2020 Generated: 04/21/20 8:40 pm Comments DCP- Discharge Planning Updated by [email or web address]: Nancy Clay on 04/21/20 6:[address] LATE ENTRY 04/20/20 Patient Name: GUZMAN MARTINEZ Admission Status: ER Accout number: [id number] Admission Date: 04-19-2020 : 1960 Admission Diagnosis:CHEST PAIN, UNSPECIFIED Attending: LIZ ROE Current LOS: 2 Anticipated DC Date: Planned Disposition: Home Primary Insurance: MEDICAID [place] Discharge Planning Comments: CM met with patient to complete initial dc planning assessment. CM educated patient on the CM role and verbal consent given by patient to complete assessment. Patient lives at home with family (her disabled son). Patient is independent. At discharge patient plans to return home and feels this is a safe discharge. CM discussed availability of home health, rehab services, and medical equipment. Patient will have family to transport home. Patient denied known discharge needs at this time. CM will continue to follow and will assist as needed with dc plans/needs. Program Admin: Nancy Clay DCPIA - Discharge Planning Initial Assessment Updated by [email or web address]: Nancy Clay on 04/21/20 7:38 pm * Is the patient Alert and Oriented? Yes * How many steps to enter\exit or inside your home? RAMP * PCP NO PCP * Pharmacy [facility] * Preadmission Environment Home with Family * ADLs Independent * Equipment None * List name and contact numbers for known caregivers / representatives who currently or will assist patient after discharge: SIDRA REILLY REMIGIO [phone] * Verbal permission to speak to the caregivers and representatives has been obtained from the patient. Yes * Community resources currently utilized None * Additional services required to return to the preadmission environment? No * Can the patient safely return to the preadmission environment? Yes * Has this patient been hospitalized within the prior 30 days at any hospital? No Patient Name: GUZMAN MARTINEZ Page [id number] at 1941 All edits/amendments must be made on the electronic document DICTATION DATE: 04/21/201939 TERMITE EXTERMINATOR HELPER: KAREN 04/21/201939 RPT#: [id number] DC DATE: STATUS: ADM IN [facility] [address] [place] [address] END OF REPORT
[2020-04-21 20:00] VITALS: BP 113/82
[2020-04-22 06:18] LABS: BASOPHILS 0.6 % (0-2); EOSINOPHILS 1.6 % (0-7); HEMATOCRIT 30.1 % (36.0-48.0); HEMOGLOBIN 9.4 g/dL (12-16); IMMATURE GRANULOCYTES 0.2 % (0-5); LYMPHOCYTES 17.8 % (15-50); MCH 28.1 pg (26.0-34.0); MCHC 31.2 g/dL (31.0-37.0); MCV 90.1 fL (80.0-100.0); MEAN PLATELET VOLUME 11.1 fL (7.4-10.4); MONOCYTES 8.8 % (2-11); PLATELET COUNT 224 10x3/uL (130-400); RBC 3.34 10x6/uL (4.00-5.40); RDW 13.9 % (11.5-14.5); WBC 9.9 10x3/uL (4.8-10.8)
[2020-04-22 06:30] LABS: APTT 27.5 SECONDS (22.8-39.4); INR 1.05 (0.85-1.17); PROTIME 13.6 SECONDS (11.6-15.0)
[2020-04-22 06:56] LABS: ALBUMIN 2.8 g/dL (3.4-5.0); ALKALINE PHOSPHATASE 104 U/L (30-120); ALT (SGPT) 85 U/L (10-68); BILIRUBIN - TOTAL 0.27 mg/dL (0.2-1.3); CALCIUM 8.3 mg/dL (8.5-10.1); CHLORIDE - SERUM 106 mmol/L (98-107); CREATININE - SERUM 0.7 mg/dL (0.6-1.3); GLUCOSE 90 mg/dL (74-106); MAGNESIUM - SERUM 1.9 mg/dL (1.8-2.4); POTASSIUM - SERUM 3.7 mmol/L (3.5-5.1); PROTEIN - SERUM 6.8 g/dL (6.4-8.2); SODIUM 138 mmol/L (136-145); eGFR NON AFRICAN AMERICAN 90 mL/min (90-120)
[2020-04-22 06:58] LABS: CALC OSMOLALITY 274 mosm/kg (275-300); UREA NITROGEN 11 mg/dL (7-18)
[2020-04-22 07:25] LABS: TROPONIN-I 54.372 ng/mL (0.000-0.060)
[2020-04-22 09:17] VITALS: BP 140/68
[2020-04-22] MEDS ORDERED: NICODERM CQ1 EAC3 TRANSDERM (10:23)
[2020-04-22] MEDS ORDERED: COREG 3.1253.125 MG PO (10:23)
[2020-04-22] MEDS ORDERED: NITROQUICK0.4 MG SL (10:23)
[2020-04-22] MEDS ORDERED: NITRO-BID OINT30 G1 TRANSDERM (10:23)
[2020-04-22] MEDS ORDERED: PLAVIX75 MG PO (10:23)
[2020-04-22] MEDS ORDERED: BAYER CHEWABLE81 MG PO ×2 (10:46→10:47)
[2020-04-22] MEDS ORDERED: CRESTOR10 MG PO ×2 (10:46→10:47)
--- NOTE | 2020-04-22 11:45 | MORECARE ---
CASE MANAGEMENT DISCHARGE SUMMARY PATIENT: GUZMAN MARTINEZ UNIT: [id number] ADM DATE: 04/19/20 AGE: 60 : 60 SEX: F ROOM/BED: D.3573 AUTHOR: INGRID,DOC PHYSICIAN: REFERRING PHYSICIAN: LIZ ROE MD DATE OF SERVICE: 04/22/20 Discharge Plan Patient Name: GUZMAN MARTINEZ Facility: [facility]:[place] : 1960 Planned Disposition: Home Anticipated Discharge Date: Discharge Date: Expected LOS: Initial Reviewer: [email or web address] Initial Review Date: 04/19/2020 Generated: 04/22/20 12:44 pm Comments DCP- Discharge Planning Updated by [email or web address]: Nancy Clay on 04/21/20 6:[address] LATE ENTRY 04/20/20 Patient Name: GUZMAN MARTINEZ Admission Status: ER Accout number: [id number] Admission Date: 04-19-2020 : 1960 Admission Diagnosis:CHEST PAIN, UNSPECIFIED Attending: LIZ ROE Current LOS: 2 Anticipated DC Date: Planned Disposition: Home Primary Insurance: MEDICAID [place] Discharge Planning Comments: CM met with patient to complete initial dc planning assessment. CM educated patient on the CM role and verbal consent given by patient to complete assessment. Patient lives at home with family (her disabled son). Patient is independent. At discharge patient plans to return home and feels this is a safe discharge. CM discussed availability of home health, rehab services, and medical equipment. Patient will have family to transport home. Patient denied known discharge needs at this time. CM will continue to follow and will assist as needed with dc plans/needs. Access Analyst: Nancy Clay DCPIA - Discharge Planning Initial Assessment Updated by [email or web address]: Nancy Clay on 04/21/20 7:38 pm * Is the patient Alert and Oriented? Yes * How many steps to enter\exit or inside your home? RAMP * PCP NO PCP * Pharmacy [facility] * Preadmission Environment Home with Family * ADLs Independent * Equipment None * List name and contact numbers for known caregivers / representatives who currently or will assist patient after discharge: SIDRA REILLY REMIGIO [phone] * Verbal permission to speak to the caregivers and representatives has been obtained from the patient. Yes * Community resources currently utilized None * Additional services required to return to the preadmission environment? No * Can the patient safely return to the preadmission environment? Yes * Has this patient been hospitalized within the prior 30 days at any hospital? No Last DP export: 04/21/20 6:41 Patient Name: GUZMAN MARTINEZ Page [id number] at 1145 All edits/amendments must be made on the electronic document DICTATION DATE: 04/22/20 1144 WAX COATING MACHINE TENDER: KAREN 04/22/20 1144 RPT#: [id number] DC DATE: STATUS: ADM IN [facility] [address] [place] [address] END OF REPORT
--- NOTE | 2020-04-22 11:51 | MORECARE ---
CASE MANAGEMENT DISCHARGE SUMMARY PATIENT: GUZMAN MARTINEZ UNIT: [id number] ADM DATE: 04/19/20 AGE: 60 : 60 SEX: F ROOM/BED: D.3777 AUTHOR: SURJIT QUINTERO PHYSICIAN: REFERRING PHYSICIAN: LIZ ROE MD DATE OF SERVICE: 04/22/20 Discharge Plan Patient Name: GUZMAN MARTINEZ Facility: [facility]:[place] : 1960 Planned Disposition: Home Anticipated Discharge Date: Discharge Date: Expected LOS: Initial Reviewer: [email or web address] Initial Review Date: 04/19/2020 Generated: 04/22/20 12:51 pm Comments DCP- Discharge Planning Updated by [email or web address]: Shanthi Kim on 04/22/20 10:[address] Patient Name: GUZMAN MARTINEZ Encounter No: [id number] : 1960 Primary Insurance: MEDICAID [place] Anticipated DC Date: Planned Disposition: Home External Planned Provider: : DCP follow-up note: CM met with pt to discuss discharge plan. Pt states she will stay with her Aunt Pina for the next few days. States SIDRA REILLY [facility]- [phone] will pick her up when she gets off work this afternoon. CM spoke to patient about DME, or Home health services. Pt declined additional services. Declination signed and placed on the chart. Patient and family in agreement with discharge plan. No changes to plan. Case management will follow and assist as needed. Shanthi Kim DCP- Discharge Planning Updated by [email or web address]: Nancy Clay on 04/21/20 6:[address] LATE ENTRY 04/20/20 Patient Name: GUZMAN MARTINEZ Admission Status: ER Accout number: [id number] Admission Date: 04-19-2020 : 1960 Admission Diagnosis:CHEST PAIN, UNSPECIFIED Attending: LIZ ROE Current LOS: 2 Anticipated DC Date: Planned Disposition: Home Primary Insurance: MEDICAID [place] Discharge Planning Comments: CM met with patient to complete initial dc planning assessment. CM educated patient on the CM role and verbal consent given by patient to complete assessment. Patient lives at home with family (her disabled son). Patient is independent. At discharge patient plans to return home and feels this is a safe discharge. CM discussed availability of home health, rehab services, and medical equipment. Patient will have family to transport home. Patient denied known discharge needs at this time. CM will continue to follow and will assist as needed with dc plans/needs. Epic Willow Analyst: aNncy Clay DCPIA - Discharge Planning Initial Assessment Updated by [email or web address]: Nancy Clay on 04/21/20 7:38 pm * Is the patient Alert and Oriented? Yes * How many steps to enter\exit or inside your home? RAMP * PCP NO PCP * Pharmacy [facility] * Preadmission Environment Home with Family * ADLs Independent * Equipment None * List name and contact numbers for known caregivers / representatives who currently or will assist patient after discharge: SIDRA REILLY REMIGIO- [phone] * Verbal permission to speak to the caregivers and representatives has been obtained from the patient. Yes * Community resources currently utilized None * Additional services required to return to the preadmission environment? No * Can the patient safely return to the preadmission environment? Yes * Has this patient been hospitalized within the prior 30 days at any hospital? No Coverage Notice Reviewer: [email or web address] Lucie Kim Notice Issued Date-Time: 04/22/2020 11:40 Notice Type: Patient Choice Letter Notice Delivered To: Patient Relationship to Patient: Self Teacher Adventure Education Name: Delivery Method: - Suzy Days: Prior Verbal Notification: Recipient Understood Notice: Yes Recipient Signature: Yes Med Rec Note Co-signed by Attending: Coverage Notice Comment: declination for hh or dme Last DP export: 04/22/20 10:44 Patient Name: GUZMAN MARTINEZ Page [id number] at 1151 All edits/amendments must be made on the electronic document DICTATION DATE: 04/22/20 1151 PRODUCTION REPRODUCTION MANAGER: KAREN 04/22/20 1151 RPT#: [id number] DC DATE: STATUS: ADM IN [facility] [address] [place] [address] END OF REPORT
--- NOTE | 2020-04-22 17:08 | NUR ---
IV AND TELEMETRY DCD. DC PLANS GIVEN. UNDERSTANDING VOICED. ESCORTED TO CAR BY W/C.
--- NOTE | 2020-04-23 18:58 | MORECARE ---
CASE MANAGEMENT DISCHARGE SUMMARY PATIENT: GUZMAN MARTINEZ UNIT: [id number] ADM DATE: 04/19/20 AGE: 60 : 60 SEX: F ROOM/BED: D.7887 AUTHOR: SURJIT QUINTERO PHYSICIAN: REFERRING PHYSICIAN: LIZ ROE MD DATE OF SERVICE: 04/23/20 Discharge Plan Patient Name: GUZMAN MARTINEZ Facility: [facility]:[place] : 1960 Planned Disposition: Home Anticipated Discharge Date: Discharge Date: 04/22/2020 Expected LOS: Initial Reviewer: [email or web address] Initial Review Date: 04/19/2020 Generated: 04/23/20 7:57 pm Comments DCP- Discharge Planning Updated by [email or web address]: Shanthi Kim on 04/22/20 10:[address] Patient Name: GUZMAN MARTINEZ Encounter No: [id number] : 1960 Primary Insurance: MEDICAID [place] Anticipated DC Date: Planned Disposition: Home External Planned Provider: : DCP follow-up note: CM met with pt to discuss discharge plan. Pt states she will stay with her Aunt Pina for the next few days. States SIDRA REILL[facility] [phone] will pick her up when she gets off work this afternoon. CM spoke to patient about DME, or Home health services. Pt declined additional services. Declination signed and placed on the chart. Patient and family in agreement with discharge plan. No changes to plan. Case management will follow and assist as needed. Shanthi Kim DCP- Discharge Planning Updated by [email or web address]: Nancy Clay on 04/21/20 6:[address] LATE ENTRY 04/20/20 Patient Name: GUZMAN MARTINEZ Admission Status: ER Accout number: [id number] Admission Date: 04-19-2020 : 1960 Admission Diagnosis:CHEST PAIN, UNSPECIFIED Attending: LIZ ROE Current LOS: 2 Anticipated DC Date: Planned Disposition: Home Primary Insurance: MEDICAID [place] Discharge Planning Comments: CM met with patient to complete initial dc planning assessment. CM educated patient on the CM role and verbal consent given by patient to complete assessment. Patient lives at home with family (her disabled son). Patient is independent. At discharge patient plans to return home and feels this is a safe discharge. CM discussed availability of home health, rehab services, and medical equipment. Patient will have family to transport home. Patient denied known discharge needs at this time. CM will continue to follow and will assist as needed with dc plans/needs. Web Applications Developer: Nancy Clay DCPIA - Discharge Planning Initial Assessment Updated by [email or web address]: Nancy Clay on 04/21/20 7:38 pm * Is the patient Alert and Oriented? Yes * How many steps to enter\exit or inside your home? RAMP * PCP NO PCP * Pharmacy [facility] * Preadmission Environment Home with Family * ADLs Independent * Equipment None * List name and contact numbers for known caregivers / representatives who currently or will assist patient after discharge: SIDRA FLOOD- [phone] * Verbal permission to speak to the caregivers and representatives has been obtained from the patient. Yes * Community resources currently utilized None * Additional services required to return to the preadmission environment? No * Can the patient safely return to the preadmission environment? Yes * Has this patient been hospitalized within the prior 30 days at any hospital? No Coverage Notice Reviewer: [email or web address] Lucie Kim Notice Issued Date-Time: 04/22/2020 11:40 Notice Type: Patient Choice Letter Notice Delivered To: Patient Relationship to Patient: Self Sales Service Rep Name: Delivery Method: - Suzy Days: Prior Verbal Notification: Recipient Understood Notice: Yes Recipient Signature: Yes Med Rec Note Co-signed by Attending: Coverage Notice Comment: declination for hh or dme Last DP export: 04/22/20 10:51 Patient Name: GUZMAN MARTINEZ Page [id number] at 1858 All edits/amendments must be made on the electronic document DICTATION DATE: 04/23/201856 HALFWAY HOUSE COUNSELOR: KAREN 04/23/201856 RPT#: [id number] DC DATE:04/22/20 STATUS: DIS IN [facility] [address] [place] [address] END OF REPORT
== END 2020-04-22 17:08 | disposition home or self-care (01) | DRG 247 ==
LOC: D.ER 17:50 → D.ICU 20:03 → D.M2 20:03
PROVIDERS: Internal Medicine Cardiovascular Disease; ADMIT Family Medicine; ATTEND Family Medicine
PROC: 027034Z Dilation of Coronary Artery, One Artery with Drug-eluting Intraluminal Device, Percutaneous Approach (ICD-10-PCS; principal; 2020-04-19 18:13)
PROC: 4A023N7 Measurement of Cardiac Sampling and Pressure, Left Heart, Percutaneous Approach (ICD-10-PCS; 2020-04-19 18:13)
PROC: 5A1223Z Performance of Cardiac Pacing, Continuous (ICD-10-PCS; 2020-04-19 18:13)
DX: I21.19 ST elevation (STEMI) myocardial infarction involving other coronary artery of inferior wall (principal); I44.2 Atrioventricular block, complete; I10 Essential (primary) hypertension; I25.10 Atherosclerotic heart disease of native coronary artery without angina pectoris; J45.909 Unspecified asthma, uncomplicated; F17.200 Nicotine dependence, unspecified, uncomplicated; E87.6 Hypokalemia; D64.9 Anemia, unspecified

== ENCOUNTER → 2020-09-09 10:24 | Outpatient (CLI) | payer OTHER ==
[2020-04-19 20:17] VITALS: BMI 23.8
[~2020-09-09 10:24] MED LIST: BAYER CHEWABLE81 MG PO; COREG 3.1253.125 MG PO; CRESTOR10 MG PO; NICODERM CQ1 EAC3 TRANSDERM; NITRO-BID OINT30 G1 TRANSDERM; NITROQUICK0.4 MG SL; PLAVIX75 MG PO
== END | disposition home or self-care (01) ==
LOC: D.HCCECHO 10:24
PROVIDERS: ATTEND Internal Medicine Cardiovascular Disease
DX: R06.09 Other forms of dyspnea (principal)

== ENCOUNTER → 2020-10-14 11:02 | Outpatient (CLI) | payer OTHER ==
[2020-04-19 20:17] VITALS: BMI 23.8
== END | disposition home or self-care (01) ==
LOC: D.HCCARDIO 11:00
PROVIDERS: ATTEND Internal Medicine Cardiovascular Disease
DX: I25.10 Atherosclerotic heart disease of native coronary artery without angina pectoris (principal)

== ENCOUNTER 2020-10-25 06:43 | Day surgery (SDC) | payer OTHER ==
[~2020-10-25] VITALS: Ht 154.9 cm; Wt 55.5 kg
--- NOTE | ~2020-10-25 | HEMODYNAMI ---
PATIENT:GUZMAN MARTINEZ MEDICAL RECORD: [id number] : 60 LOCATION:[facility] ADMISSION DATE: 10/25/20 Generatedon:110:18 Patient name: GUZMAN MARTINEZ Patient #: [id number] SSN: [id number] : 1960 Date of study: 10/25/2020 Page: Of Hemodynamic Procedure Report Patient Data Patient Demographics Procedure consent was obtained First Name: GUZMAN Gender: Female Last Name: JUAN : 1960 Middle Initial: A Age: 60 year(s) Patient #: [id number] Race: SSN: [id number] Additional ID: [id number] Contact details Address: [address] [place] [address] State: [place] City: [place] Zip code: [address] Past Medical History Performed procedures and imaging results Date Procedure Procedure Results Comments Stress testing Positive->Intermediate with SPECT MPI risk Allergies Allergen Reaction Date Comments Reported Other allergy 04/21/2020 pcn Penicillins 10/25/2020 Admission Admission Data Admission Date: 10/25/2020 Admission Time: 6:43 Arrival Date: 10/18/2020 Arrival Time: 0:00 Admit Source: Other Insurance Payor: Medicare [facility] #: [id number] Height (in.): 60.63 BSA: 1.52 (m2) Height (cm.): 154 BMI: 23.19 (kg/m2) Weight (lbs.): 121.25 Weight (kg.): 55 Lab Results Lab Result Date: 10/25/2020 Lab Result Time: 0:00 Biochemistry Name Units Result Min Max BUN mg/dl 18 --(---*)-- 7 18 Creatinine mg/dl 0.8 --(-*--)-- 0.6 1.3 eGFR ml/min 76.86859 *-(----)-- 90 120 NONAFRICAN Procedure Procedure Types Cath Procedure Diagnostic Procedure LHC LHC w/Coronaries FFR/IVUS FFR Initial Sedation Charges Moderate Sedation 10-24 minutes Procedure Description Procedure Date Procedure Date: 10/25/2020 Procedure Start Time: 9:52 Procedure End Time: 10:16 Procedure Staff Name Function Eddie Valadez MD Performing Physician Sissy Hollis RT Monitor Loretta Shafer RT Scrub Jarad Monte RN Nurse Indication Abnormal stress perfusion study with ischemia in the inferior wall Procedure Data Cath Procedure Fluoroscopy Diagnostic fluoroscopy Total fluoroscopy Time: 3.2 time: 3.2 min min Diagnostic fluoroscopy Total fluoroscopy dose: 279 dose: 279 mGy mGy Contrast Material Contrast Material Type Amount (ml) Isovue 300 63 Entry Location Entry Primary Successful Side Size Upsize Upsize Entry Closure Succes sful Closure Location (Fr) 1 (Fr) 2 (Fr) Remarks Device Remarks Femoral Right 5 Fr 6 Fr Exoseal artery Short Estimated blood loss: 5 ml Diagnostic catheters Device Type Used For End Catheter Placement MULTIPACK JL 4.0 5Fr Procedure catheter MULTIPACK 3DRC 5Fr Procedure catheter MULTIPACK Pigtail 5 Fr Procedure catheter Procedure Complications No complications Procedure Medications Medication Administration Route Dosage 0.9% NaCl I.V. 100 ml/hr Oxygen etCO2 Nasal cannula 2 l/min Heparin Flush Bag added to field 2 bags (1000units/500ml NS) Lidocaine 2% added to field 20 Versed I.V. 1 mg Fentanyl I.V. 50 mcg Versed I.V. 0.5 mg Fentanyl I.V. 25 mcg Heparin Bolus I.V. 3000 units Hemodynamics Rest BSA: 1.52 (m2) O2 Consumption: Estimated: 150.44 (ml/min) O2 Consumption indexed : Estimated:98.97 (ml/min/m) Heart Rate: 81 (bpm) Pressure Samples Time Site Value (mmHg) Purpose Heart Use Rate(bpm) 10:01 LV 170/6,21 Snapshot 87 10:02 AO 169/83(119) Pullback 88 10:02 LV 149/1,27 Pullback 88 Gradients Valve Time Site 1 Site 2 Mean SEP/DFP Peak To Heart Use (mmHg) (sec/min) Peak Rate (mmHg) (bpm) Aortic 10:02 LV AO 0 6 0 88 149/1,27 169/83(119) Calculations Valve P-P Mean Valve Index Valve Source Name Gradient Area Flow (cm2) Aortic 0 0 0 0 Snapshots Pre Cath Intra NCS Post Cath Vital Signs Time Heart Resp SPO2 etCO2 NIBP (mmHg) Rhythm Pain Sedation Rate (ipm) (%) (mmHg) Status Level (bpm) 9:13:11 80 17 100 25.5 171/109(155) NSR 0 (11) 10(A) , No pain 9:17:33 76 14 100 25.5 176/110(152) NSR 0 (11) 10(A) , No pain 9:21:45 76 11 100 24.8 156/96(139) NSR 0 (11) 10(A) , No pain 9:26:01 79 25 100 26.3 175/96(150) NSR 0 (11) 10(A) , No pain 9:30:25 83 17 100 21.8 162/116(147) NSR 0 (11) 10(A) , No pain 9:34:43 79 15 100 22.5 179/96(152) NSR 0 (11) 10(A) , No pain 9:39:08 82 15 100 30.8 173/97(157) NSR 0 (11) 10(A) , No pain 9:43:24 82 16 100 28.5 160/99(144) NSR 0 (11) 10(A) , No pain 9:47:42 84 13 100 30 170/101(146) NSR 0 (11) 10(A) , No pain 9:52:02 82 28 100 30 157/95(134) NSR 0 (11) 10(A) , No pain 9:56:20 78 13 99 27.8 161/89(132) NSR 0 (11) 10(A) , No pain 10:00:40 84 12 99 32.3 158/91(128) NSR 0 (11) 9(A) , No pain 10:04:58 87 17 98 33 154/96(137) NSR 0 (11) 9(A) , No pain 10:09:12 86 12 98 32.3 153/96(138) NSR 0 (11) 9(A) , No pain 10:13:26 87 14 98 27 147/96(130) NSR 0 (11) 10(A) , No pain Medications Time Medication Route Dose Verified Delivered Reason Notes Effectiveness by by 9:14:00 0.9% NaCl I.V. 100 Jarad Jarad Per physician ml/hr Mell Monte RN RN 9:14:09 Oxygen etCO2 2 Jarad Jarad for low 02 sats Nasal l/min Mell Monte cannula RN RN 9:14:19 Heparin Flush added 2 Jarad Jarad used for Bag to bags Mell Monte procedure (1000units/500ml field RN RN NS) 9:14:34 Lidocaine 2% added 20ml Jarad Jarad for local to vial Mell Monte anesthetic field RN RN 9:51:51 Versed I.V. 1 mg Jarad Jarad for sedation Mell Monte RN RN 9:51:59 Fentanyl I.V. 50 Jarad Jarad for sedation mcg Mell Monte RN RN 10:03:25 Versed I.V. 0.5 Jarad Jarad for sedation mg Mell Monte RN RN 10:03:32 Fentanyl I.V. 25 Jarad Jarad for sedation mcg Mell Monte RN RN 10:07:44 Heparin Bolus I.V. 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 Log Time Note 7:50:31 Arrival Date: 10/18/2020 12:00:00 AM 7:50:48 Admit Source: Other 7:50:53 Insurance Payor : Medicare 8:01:10 Patient Height : 60.63 inches 8:01:15 Patient Weight : 121.25 lbs 8:03:24 Lab Result : Creatinine 0.8 mg/dl 8:03:24 Lab Result : BUN 18 mg/dl 8:03:24 Lab Result : eGFR NONAFRICAN 76.10147 ml/min 8:03:42 Procedure type changed to Cath procedure, Diagnostic procedure, LHC, LHC w/Coronaries, FFR/IVUS, FFR Initial, Sedation Charges, Moderate Sedation 10-24 minutes 8:03:50 Diagnostic Cath Status : Elective 8:04:33 Indication : Abnormal stress perfusion study with ischemia in the inferior wall 8:04:51 Procedure Status Elective Heart Cath (OP). 8:10:13 Time tracking: Regular hours (M-F 7:00 - 5:00) 8:10:18 Plan of Care:Hemodynamics will remain stable., Cardiac rhythm will remain stable., Comfort level will be maintained., Respiratory function will remain adequate., Patient/ family verbilizes understanding of procedure., Procedure tolerated without complication., Recovers from procedure without complications.. 8:17:39 H&P Date Dictated: 10/06/2020 Within 30 days and on chart., H&P Addendum completed by physician on day of procedure. (MUST COMPLETE FOR ALL OUTPATIENTS). 8:18:08 Patient allergic to Penicillins 8:20:48 Stress Test: yes; abnormal INFERIOR 8:55:07 Jarad Monte RN sent for patient. Start room use. 9:05:25 Patient received from Pre/Post Procedure Room to CCL 1 Alert and oriented. Tansferred to table in Supine position. 9:05:27 Signed procedure consent form obtained from patient. 9:05:28 Warm blankets applied, and isidro hugger turned on for patient comfort. 9:05:28 Correct patient and procedure confirmed by team. 9:05:28 ECG and BP/O2 sat monitors applied to patient. 9:11:57 Vital chart was started 9:12:00 Rhythm: sinus rhythm 9:12:03 Baseline sample Acquired. 9:12:03 Full Disclosure recording started 9:12:04 Pre-procedure instructions explained to patient. 9:12:04 Pre-op teaching completed and patient verbalized understanding. 9:12:06 Family in patients room. 9:12:07 Patient NPO since Midnight. 9:12:09 Is the patient allergic to Iodine/contrast media? No. 9:12:33 PATIENT SAYS SHE STOPPED TAKING HER PLAVIX A WEEK AGO. SAID SHE RAN OUT 9:12:36 Patient diabetic? No. 9:12:40 Previous problem with sedation/anesthesia? No ? 9:12:42 Snore? Yes 9:12:42 Sleep apnea? No 9:12:44 Deviated septum? No 9:12:45 Opens mouth fully? Yes 9:12:46 Sticks out tongue? Yes 9:12:47 Airway obstruction? No ? 9:12:50 Dentures? No ? 9:12:52 Pre procedure: right dorsailis pedis pulse 1+ Palpable, but thready & weak; easily obliterated 9:12:55 Patient pain scale 0/10 ?. 9:12:59 IV patent on arrival in left hand with 0.9% NaCl at O. 9:13:02 Lab results completed and on chart. 9:13:05 Right groin area was prepped with chlora-prep and draped in sterile fashion 9:13:06 Alarms reviewed by R. N. 9:13:06 Sharps counted by scrub and verified by R.N. 9:13:09 Use device set Femoral Dx 9:13:10 ACIST Syringe (97065) opened to sterile field. 9:13:10 Bag Decanter (2002S) opened to sterile field. 9:13:12 ACIST Hand Control (94146) opened to sterile field. 9:13:12 ACIST Manifold (52928) opened to sterile field. 9:13:13 Tegaderm 4 x 4 (1626W) opened to sterile field. 9:13:14 Medline Cath Pack ([id number]) opened to sterile field. 9:13:14 DIAGNOSTIC Multipack 5Fr catheter set (ZE6424) opened to sterile field. 9:13:15 SHEATH 5FR Roy (LFD579) opened to sterile field. 9:13:16 EMERALD Guide Wire (721-143) opened to sterile field. 9:14:00 0.9% NaCl 100 ml/hr I.V. was administered by Jarad Monte RN; Per physician; Verbal order read back and verified. 9:14:09 Oxygen 2 l/min etCO2 Nasal cannula was administered by Jarad Monte RN; for low 02 sats; Verbal order read back and verified. 9:14:19 Heparin Flush Bag (1000units/500ml NS) 2 bags added to field was administered by Jarad Monte RN; used for procedure; Verbal order read back and verified. 9:14:34 Lidocaine 2% 20ml vial added to field was administered by Jarad Monte RN; for local anesthetic; Verbal order read back and verified. 9:48:33 --------ALL STOP TIME OUT------ 9:48:34 Final Timeout: patient, procedure, and site verified with staff and physician. All members of the team are in agreement. 9:48:35 Right groin site verified by team. 9:48:38 Fire Safety Assessment: A--An alcohol-based skin anteseptic being used preoperatively., C--Open oxygen or nitrous oxide is being used., D--An ESU, laser, or fiber-optic light is being used. 9:48:42 Physical assessment completed. ASA score P 2 - A patient with mild systemic disease as per Eddie Valadez MD. 9:48:46 2) 60-89 Mildly reduced kidney function, and other findings (as for stage 1) point to kidney disease. 9:48:49 Maximum allowable contrast dose (3.7 X eGFR X 0.75)213 ml. 9:48:52 Sedation plan: IV Moderate Sedation Medication:Versed, Fentanyl 9:50:02 Zero performed for pressure channel P1 9:51:51 Versed 1 mg I.V. was administered by Jarad Monte RN; for sedation; Verbal order read back and verified. 9:51:59 Fentanyl 50 mcg I.V. was administered by Jarad Monte RN; for sedation; Verbal order read back and verified. 9:52:09 Procedure started. 9:52:36 Local anesthetic to right femoral artery with Lidocaine 2% by Eddie Valadez MD.INITIAL ACCESS ONLY 9:54:52 A 5 Fr sheath was inserted into the Right Femoral artery 9:57:29 A MULTIPACK JL 4.0 5Fr catheter was advanced over the wire and used for Procedure. 9:57:43 LCA angiography performed. 9:57:44 Catheter exchanged over wire. 9:59:10 A MULTIPACK 3DRC 5Fr catheter was advanced over the wire and used for Procedure. 10:00:23 RCA angiography performed. 10:00:24 Catheter exchanged over wire. 10:00:27 ACCDominant side:Right 10:00:32 A MULTIPACK Pigtail 5 Fr catheter was advanced over the wire and used for Procedure. 10:00:38 LV gram done using ARAUJO 10:00:41 Injector settings: Ml/sec: 10, Volume: 20, 10:01:57 LV hemodynamics recorded. 10:02:17 EF : 35 % 10:02:28 Catheter exchanged over wire. 10:02:29 Proceeding to IFR CIRC 10:03:22 SHEATH 6FR Roy ([id number]) opened to sterile field. 10:03:22 INFLATOR Merit BasixCompak (LA3957) opened to sterile field. 10:03:22 TUBING High Pressure Extension Tubing (Rory) ([id number]) opened to sterile field. 10:03:23 [place] OmniWire (57057) opened to sterile field. 10:03:25 Versed 0.5 mg I.V. was administered by Jarad Monte RN; for sedation; Verbal order read back and verified. 10:03:32 Fentanyl 25 mcg I.V. was administered by Jarad Monte RN; for sedation; Verbal order read back and verified. 10:05:38 GUIDE 6FR EBU 3.5 catheter ([id number]) opened to sterile field. 10:05:57 Sheath upsized to a 6 Fr Short. 10:07:44 Heparin Bolus 3,000 units I.V. was administered by Jarad Monte RN; for anticoagulation; Verbal order read back and verified. 10:08:08 6 Fr EBU 3.5 guide catheter was inserted over the wire 10:08:46 Pressure wire advanced. 10:10:13 Wire advanced across lesion. 10:10:19 Circ lesion measured at 1.01 with IFR 10:11:09 Wire removed. 10:11:10 Guide catheter removed. 10:11:17 EXOSEAL 6Fr (EX600) opened to sterile field. 10:12:51 Sheath removed intact; hemostasis achieved with Exoseal to the Right Femoral artery. 10:12:54 Procedure ended.(Physican Out) 10:13:11 Contrast amount:Isovue 300 63ml. 10:13:15 Fluoroscopy time 03.20 minutes. 10:13:23 Flurop Dose total: 279 10:13:23 Fluoroscopy dose: 279 mGy 10:13:34 Dose Area Product 59014 mGy/cm. 10:13:38 Maximum allowable dose exceeded? No. 10:13:55 Sharps counted by scrub and verified by R.N. 10:14:29 Post-op/insertion site Right Femoral artery dressed using a 4 x 4 and Tegaderm. 10:14:33 Post-procedure physical assessment completed. ASA score P 2 - A patient with mild systemic disease as per Eddie Valadez MD. 10:14:36 Post procedure rhythm: sinus rhythm 10:14:38 Estimated blood loss: 5 ml 10:14:40 Post procedure instruction explained to patient.Patient verbalizes understanding. 10:14:40 Patient needs reinforcement of post procedure teaching. 10:15:56 Procedure and supply charges have been captured, reviewed, submitted and are correct. 10:15:58 Procedure Complication : No complications 10:16:00 Vital chart was stopped 10:16:03 [facility] Findings: mild to moderate CAD (<70%) 10:16:05 Operative report dictated upon procedure completion. 10:16:05 See physician's report for complete and final results. 10:16:06 Report given to Pre/Post Procedure Room. 10:16:08 Patient transfered to Pre/Post Procedure Room with Bed. 10:16:10 ACT drawn and resulted at 240 seconds. (normal therapeutic range 180-240 seconds). 10:16:10 Procedure ended. 10:16:10 Full Disclosure recording stopped 10:16:16 End room use (Document Last) 10:17:28 End room use (Document Last) 10:17:54 End room use (Document Last) Device Usage Item Name Manufacture Quantity Catalog Hospital Part Current Minimal L ot# / Number Charge Number Stock Stock Serial# Code ACIST Acist 1 21290 [id number] 20 Syringe Medical (18398) Systems Inc Bag Microtek 1 2001S 403099 69510 245559 5 Decanter Medical Inc. () ACIST Hand Acist 1 29411 688835 554254 361280 5 Control Medical (02503) Systems Inc ACIST Acist 1 08392 543433 537068 850876 5 Manifold Medical (75360) Systems Inc Tegaderm 4 3M 1 1626W 370948 630123 640988 5 x 4 (1626W) Medline Medline 1 [id number] 606006 01386 360142 5 Cath Pack ([id number]) DIAGNOSTIC Cardinal 1 NF0572 704000 50543 298352 30 Multipack Health 5Fr catheter set (CE1736) SHEATH 5FR Terumo 1 IJO910 969785 582861 800794 5 Roy (OQB663) EMERALD Cardinal 1 502-455 152121 850825 604478 5 Guide Wire Health (502-455) MULTIPACK Cardinal 1 655370 5 JL 4.0 5Fr Health catheter MULTIPACK Cardinal 1 181186 5 3DRC 5Fr Health catheter MULTIPACK Cardinal 1 265280 5 Pigtail 5 Health Fr catheter SHEATH 6FR Terumo 1 ODA533 377654 761333 028204 40 Roy (FEM380) INFLATOR [facility] 1 LM3782 749399 811087 528614 15 [facility] Medical BasixCompak (KF5821) TUBING High Merit 1 [id number] 651448 66337 884425 10 Pressure Medical Extension Tubing (Rory) ([id number]) [place] Freedom 1 0105656 411644 57103 9970 5 OmniWire (94511) GUIDE 6FR Medtronic 1 [id number] 045480 05312 817328 3 EBU 3.5 catheter ([id number]) EXOSEAL 6Fr Cardinal 1 EX600 769367 513042 358419 10 (EX600) Health Signature Audit Cando Stage Time Signature Unsigned Intra-Procedure 10/25/2020 Sissy Hollis 10:17:28 AM RT(R) Intra-Procedure 10/25/2020 Jarad 10:17:54 AM Mell ALTAMIRANO Intra-Procedure 10/25/2020 Eddie Valadez MD 10:18:20 AM [id number] [place] [address]
[2020-10-25] MEDS ORDERED: COREG 3.1253.125 MG PO (07:02)
[2020-10-25 07:10] VITALS: BP 167/91; Ht 154.9 cm; Wt 55.5 kg
[2020-10-25 07:47] LABS: ALT (SGPT) 24 U/L (10-68); CALC OSMOLALITY 275 mosm/kg (275-300); CALCIUM 8.2 mg/dL (8.5-10.1); CARBON DIOXIDE 22.8 mmol/L (21.0-32.0); CHLORIDE - SERUM 105 mmol/L (98-107); CHOL - HDL RATIO 1.6 ratio (2.3-4.1); CHOLESTEROL, TOTAL 117 mg/dL (0-200); CREATININE - SERUM 0.8 mg/dL (0.6-1.3); GLUCOSE 95 mg/dL (74-106); HDL CHOLESTEROL 73 mg/dL (32-96); LDL CHOLESTEROL 37 mg/dL (0-100); LDL-HDL RATIO 0.5 ratio (1.5-3.5); POTASSIUM - SERUM 3.5 mmol/L (3.5-5.1); SODIUM 137 mmol/L (136-145); TRIGLYCERIDE 37 mg/dL (30-200); UREA NITROGEN 18 mg/dL (7-18); eGFR NON AFRICAN AMERICAN 77 mL/min (90-120)
[2020-10-25 08:15] LABS: BASOPHILS 1.6 % (0-2); EOSINOPHILS 11.8 % (0-7); HEMATOCRIT 24.7 % (36.0-48.0); IMMATURE GRANULOCYTES 0.3 % (0-5); LYMPHOCYTE ABS# 1.37 10x3/uL (1.18-3.74); LYMPHOCYTES 18.2 % (15-50); MCH 20.4 pg (26.0-34.0); MCHC 29.1 g/dL (31.0-37.0); MEAN PLATELET VOLUME 10.3 fL (7.4-10.4); MONOCYTES 9.4 % (2-11); NEUTROPHIL ABS# 4.42 10x3/uL (1.56-6.13); NEUTROPHILS 58.7 % (40-80); RBC 3.53 10x6/uL (4.00-5.40); WBC 7.5 10x3/uL (4.8-10.8)
[2020-10-25 08:20] LABS: HEMOGLOBIN 7.2 g/dL (12-16); PLATELET COUNT 304 10x3/uL (130-400)
--- NOTE | 2020-10-25 10:30 | NUR ---
PT REC'D TO CATH RECOVERY ROOM 5 VIA STRETCHER. MONITORS ESTAB. PT DROWSY, NO FAMILY AT BS. SEE [employer] FLOWSHEETS. ALARMS ON AND C/L IN REACH.
--- NOTE | 2020-10-25 10:45 | NUR ---
R GROIN SITE SOFT, NO S/S BLEEDING OR HEMATOMA, R LEG/FOOT WARM WITH EASILY PALP PULSES AND BRISK CAP REFILL. VSS. PT RESTING QUIETLY, NO S/S OF DISTRESS. ALARMS ON AND C/L IN REACH.
--- NOTE | 2020-10-25 11:15 | NUR ---
R GROIN EXOSEAL SITE C/D/I, NO S/S BLEEDING OR HEMATOMA. R LEG/FOOT WARM WITH PALP PULSES AND BRISK CAP REFILL. ALARMS ON AND C/L IN REACH.
--- NOTE | 2020-10-25 11:20 | NUR ---
DR. CRENSHAW IN TO SEE PT, UPDATE GIVEN, NEW ORDER TO STOP PLAVIX. WILL SEE IN OFFICE IN ONE MONTH. PT NEEDS TO FOLLOW UP WITH MAIL MESSENGER CONTRACTOR RE: LOW HCT/HGB.
--- NOTE | 2020-10-25 12:00 | NUR ---
R GROIN SITE C/D/I, NO S/S BLEEDING OR HEMATOMA. PULSES PALP. PT DENIES PAIN OR NEEDS. ALARMS ON AND C/L IN REACH.
--- NOTE | 2020-10-25 12:15 | NUR ---
PT VOIDED 300CC CLEAR, YELLOW URINE ON BEDPAN, PERICARE PROVIDED.
--- NOTE | 2020-10-25 12:25 | NUR ---
R GROIN SITE SOFT, C/D/I. PULSES PALP. HOB ELEVATED. SANDWICH TRAY AND COLA PROVIDED. 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 SHE WAS SEEN BY DR. ROE LAST APR AND SAID SHE WOULD CALL TO FOLLOW UP WITH THEIR GROUP.
--- NOTE | 2020-10-25 12:45 | NUR ---
DR. ROE'S OFFICE CONTACTED ON PT BEHALF - THEY STATED THEY HAVE NO MEDICAID SLOTS AVAILABLE AT THIS TIME.
--- NOTE | 2020-10-25 12:50 | NUR ---
CASE MANAGEMENT NOTIFIED OF PT NEED FOR PRIMARY CARE - CONTACTED [facility] AND APPOINTMENT MADE FOR PT PER PT REQUEST.
--- NOTE | 2020-10-25 13:00 | NUR ---
R GROIN SITE SOFT, NO S/S BLEEDING OR HEMATOMA. PULSES EASILY PALP. PT DENIES PAIN OR NEEDS.
--- NOTE | 2020-10-25 13:09 | NUR ---
ALL DISCHARGE INSTRUCTIONS REVIEWED WITH PT, INCLUDING RESTRICTIONS, MEDS AND F/U APPTS. PT VERBALIZES UNDERSTANDING. PIV D/C'D, DSG APPLIED. PT ALLOWED UP TO GET DRESSED.
--- NOTE | 2020-10-25 13:23 | NUR ---
PT DC'D VIA TO PRIVATE VEHICLE WITH ALL PAPERWORK AND BELONGINGS.
== END 2020-10-25 13:23 | disposition home or self-care (01) ==
LOC: D.CATH 06:43
PROVIDERS: ATTEND Internal Medicine Cardiovascular Disease
DX: I25.110 Atherosclerotic heart disease of native coronary artery with unstable angina pectoris (principal); R94.39 Abnormal result of other cardiovascular function study; I10 Essential (primary) hypertension; R06.09 Other forms of dyspnea